=== PATIENT | male | born 1975 | race Caucasian/White ===

== ENCOUNTER 2020-03-05 18:10 | Inpatient (IN) ==
[2020-03-05 19:38] LABS: Blood, Urine Negative (Negative); Glucose,Urine (UA) Negative (Negative); Ketones,Urine Negative (Negative); Mucus,Urine Occasional /LPF (Occasional); Nitrite,Urine Negative (Negative); Protein,Urine Negative; RBC,Urine 1 /HPF (0-4); Urine Appearance CLEAR (Clear); Urine Color Amber (Yellow); Urine Specific Gravity 1.019 (1.001-1.035); WBC,Urine 2 /HPF (0-6)
[2020-03-05 19:38] LABS: Basophils # 0.1 10*3/uL (0.0-0.2); Basophils % 0.7 % (0.0-0.8); Eosinophils # 0.1 10*3/uL (0.0-0.87); Eosinophils % 0.5 % (0.00-10.9); Hematocrit 39.2 VOL% (42.0-52.0); Hemoglobin 13.8 GM/DL (14.0-18.0); Immature Granulocytes Absolute 0.13 #; Lymphocytes % 16.3 % (21.2-54.2); Mean Corpuscular HGB Conc 35.2 GM/DL (32-36); Mean Platelet Volume 10.1 FL (9.6-12.0); Monocytes % 6.1 % (1.7-12.7); Neutrophils % 75.4 % (38.7-73.9); Platelet Count 79 T/CUMM (130-400); Red Cell Distribution Width 15.2 % (9.3-17.3); White Blood Count 12.6 T/CUMM (4-12)
[2020-03-05 19:40] LABS: Bilirubin,Urine Moderate mg/dL (Negative)
[2020-03-05] MEDS ORDERED: MORPHINE 4 MG/1 ML VIAL IV STA ×2 (19:42→22:14)
[2020-03-05] MEDS ORDERED: LACTATED RINGERS 1,000 ML IV ONE (19:42)
[2020-03-05] MEDS ORDERED: ONDANSETRON 4 MG/2 ML VIAL IV STA (19:42)
[2020-03-05 20:01] LABS: Bilirubin,Total 8.4 MG/DL (0.2-1.0); Calcium 8.2 MG/DL (8.5-10.1); Osmolality,Calculated 266.1 MOS/KG (273-304); Total Protein 8.7 G/DL (6.4-8.3)
[2020-03-05 20:14] LABS: Platelet Estimate Decreased
[2020-03-05] MEDS ORDERED: metroNIDAZOLE INJ 500 MG in PREMIX 1 EACH IV STA (22:44)
[2020-03-05] MEDS ORDERED: PIPERACILLIN/TAZOBACTAM 3,375 MG in SODIUM CHLORIDE 0.9% 100 ML IV STA ×2 (22:44→22:51)
[2020-03-05] MEDS ORDERED: PIPERACILLIN/TAZOBACTAM 3,375 MG VIAL IV ONE (22:58)
[2020-03-05] MEDS ORDERED: SODIUM CHLORIDE 0.9% 100 ML IV ONE (22:59)
[2020-03-05] MEDS ORDERED: DEXTROSE 50% 25 GM/50 ML VIAL IV PRN (23:08)
[2020-03-05] MEDS ORDERED: guaiFENesin/DM ER 600-30 MG TABLET PO PRN (23:08)
[2020-03-05] MEDS ORDERED: PROMETHAZINE 25 MG TABLET PO PRN (23:08)
[2020-03-05] MEDS ORDERED: ACETAMINOPHEN 325 MG TABLET PO PRN (23:08)
[2020-03-05] MEDS ORDERED: ZALEPLON 5 MG CAPSULE PO PRN (23:08)
[2020-03-05] MEDS ORDERED: diphenhydrAMINE CAP 25 MG CAPSULE PO PRN (23:08)
[2020-03-05] MEDS ORDERED: GLUCAGON 1 MG VIAL IM PRN (23:08)
[2020-03-05] MEDS ORDERED: NICOTINE 21 MG/24 HR PATCH TRANSDERM PRN (23:08)
[2020-03-05] MEDS ORDERED: PROMETHAZINE 25 MG/1 ML VIAL IM PRN (23:08)
[2020-03-05] MEDS ORDERED: hydrALAZINE 20 MG/1 ML VIAL IV PRN (23:08)
[2020-03-06] MEDS: ONDANSETRON 4 MG/2 ML VIAL IV PRN ×2 (00:56→21:43)
[2020-03-06] MEDS: SODIUM CHLORIDE 0.9% 1,000 ML IV SCH ×3 (01:16→21:32)
[2020-03-06] MEDS: VANCOMYCIN INJ 1,500 MG in SODIUM CHLORIDE 0.9% 500 ML IV SCH ×2 (01:59→13:51)
[2020-03-06] MEDS: MORPHINE 4 MG/1 ML VIAL IV PRN ×4 (03:12→18:01)
[2020-03-06 06:22] LABS: Basophils # 0.1 10*3/uL (0.0-0.2); Basophils % 0.6 % (0.0-0.8); Eosinophils % 0.2 % (0.00-10.9); Hematocrit 33.4 VOL% (42.0-52.0); Hemoglobin 11.7 GM/DL (14.0-18.0); Immature Granulocytes % 1.1 %; Immature Granulocytes Absolute 0.12 #; Lymphocytes # 1.7 10*3/uL (1.4-4.0); Lymphocytes % 15.4 % (21.2-54.2); Mean Corpuscular Volume 98.5 FL (87-102); Mean Platelet Volume 10.4 FL (9.6-12.0); Monocytes % 6.6 % (1.7-12.7); Neutrophils % 76.1 % (38.7-73.9); Platelet Count 60 T/CUMM (130-400); Red Blood Count 3.39 MC/CUMM (3.8-5.5); Red Cell Distribution Width 15.2 % (9.3-17.3); White Blood Count 10.7 T/CUMM (4-12)
[2020-03-06] MEDS: PIPERACILLIN/TAZOBACTAM 3,375 MG in SODIUM CHLORIDE 0.9% 100 ML IV SCH ×3 (06:24→22:47)
[2020-03-06 06:41] LABS: Band Neutrophils 2 % (0-10); Lymphocytes 11 % (20-55); Platelet Estimate Decreased; Segmented Neutrophils 84 % (50-85); Total Cells Counted 100
[2020-03-06 06:42] LABS: Hypochromasia 1+; Microcytosis 1+
[2020-03-06 06:44] LABS: Calcium 7.9 MG/DL (8.5-10.1); Osmolality,Calculated 264.2 MOS/KG (273-304)
[2020-03-06 06:46] LABS: Albumin 1.8 G/DL (3.4-5.0); Bilirubin,Direct 6.24 MG/DL (0.0-0.20); Bilirubin,Indirect 2.6 MG/DL (0.0-1.0); Bilirubin,Total 8.8 MG/DL (0.2-1.0); Total Protein 7.8 G/DL (6.4-8.3)
[2020-03-06] MEDS ORDERED: VANCOMYCIN INJ 1,500 MG in SODIUM CHLORIDE 0.9% 500 ML IV SCH (07:00)
[2020-03-06] MEDS ORDERED: PANTOPRAZOLE 40 MG TABLET PO SCH (09:00)
[2020-03-06] MEDS ORDERED: ONDANSETRON 4 MG/2 ML VIAL ONE (09:00)
[2020-03-06] MEDS ORDERED: LIDOCAINE 2% 5 ML VIAL ONE (09:00)
[2020-03-06] MEDS ORDERED: propofoL 200 MG/20 ML VIAL IV ONE (09:00)
[2020-03-06] MEDS ORDERED: ENOXAPARIN 40 MG/0.4 ML SYRINGE SUBCUT SCH (09:00)
[2020-03-06 14:37] LABS: INR 1.2; PT Patient Result 13.1 SECS (9.8-11.9)
[2020-03-06 16:10] LABS: Neutrophils,Peritoneal Fluid 76 %
[2020-03-06 16:11] LABS: RBC,Peritoneal Fluid 808 T/CUMM
[2020-03-06] MEDS ORDERED: LORazepam 2 MG/1 ML VIAL IV PRN (17:48)
[2020-03-06] MEDS ORDERED: chlordiazePOXIDE 25 MG CAPSULE PO ONE (17:49)
[2020-03-06] MEDS: chlordiazePOXIDE 25 MG CAPSULE PO SCH (21:32)
[2020-03-06] MEDS: THIAMINE 200 MG/2 ML VIAL IV SCH (21:34)
[2020-03-07] MEDS: SODIUM CHLORIDE 0.9% 1,000 ML IV SCH ×2 (00:30→14:29)
[2020-03-07] MEDS: MORPHINE 4 MG/1 ML VIAL IV PRN ×3 (00:51→14:28)
[2020-03-07] MEDS: VANCOMYCIN INJ 1,500 MG in SODIUM CHLORIDE 0.9% 500 ML IV SCH (02:16)
[2020-03-07 05:31] LABS: Basophils # 0.1 10*3/uL (0.0-0.2); Basophils % 0.9 % (0.0-0.8); Eosinophils % 0.3 % (0.00-10.9); Hematocrit 28.7 VOL% (42.0-52.0); Hemoglobin 10.2 GM/DL (14.0-18.0); Immature Granulocytes % 0.7 %; Immature Granulocytes Absolute 0.05 #; Lymphocytes # 1.4 10*3/uL (1.4-4.0); Mean Corpuscular HGB Conc 35.5 GM/DL (32-36); Mean Corpuscular Volume 97.6 FL (87-102); Mean Platelet Volume 10.1 FL (9.6-12.0); Monocytes % 7.6 % (1.7-12.7); Neutrophils % 70.5 % (38.7-73.9); Red Blood Count 2.94 MC/CUMM (3.8-5.5); Red Cell Distribution Width 14.9 % (9.3-17.3); White Blood Count 6.8 T/CUMM (4-12)
[2020-03-07 05:41] LABS: Calcium 7.6 MG/DL (8.5-10.1); Osmolality,Calculated 261.4 MOS/KG (273-304)
[2020-03-07 06:04] LABS: Platelet Count 47 T/CUMM (130-400)
[2020-03-07 06:08] LABS: Hypochromasia 1+
[2020-03-07 06:09] LABS: Anisocytosis 1+; Microcytosis 1+; Platelet Estimate Decreased; Target Cells Few
[2020-03-07] MEDS: PIPERACILLIN/TAZOBACTAM 3,375 MG in SODIUM CHLORIDE 0.9% 100 ML IV SCH ×3 (06:27→22:25)
[2020-03-07] MEDS: chlordiazePOXIDE 25 MG CAPSULE PO SCH ×3 (08:44→22:25)
[2020-03-07] MEDS: THIAMINE 200 MG/2 ML VIAL IV SCH (08:44)
[2020-03-07] MEDS: MULTIVITAMIN (CENTRUM) TABLET PO SCH (08:44)
[2020-03-07] MEDS: FOLIC ACID 1 MG TABLET PO SCH (08:44)
[2020-03-07] MEDS: ONDANSETRON 4 MG/2 ML VIAL IV PRN ×2 (08:45→14:28)
[2020-03-07] MEDS ORDERED: chlorproMAZINE 25 MG TABLET PO ONE (16:00)
[2020-03-07] MEDS: chlorproMAZINE 25 MG TABLET PO SCH (22:25)
[2020-03-08] MEDS: SODIUM CHLORIDE 0.9% 1,000 ML IV SCH (01:30)
[2020-03-08 03:56] LABS: Basophils # 0.1 10*3/uL (0.0-0.2); Basophils % 0.8 % (0.0-0.8); Eosinophils # 0.1 10*3/uL (0.0-0.87); Eosinophils % 0.8 % (0.00-10.9); Hematocrit 27.1 VOL% (42.0-52.0); Hemoglobin 9.5 GM/DL (14.0-18.0); Immature Granulocytes % 1.4 %; Immature Granulocytes Absolute 0.09 #; Lymphocytes # 1.5 10*3/uL (1.4-4.0); Lymphocytes % 23.2 % (21.2-54.2); Mean Corpuscular HGB Conc 35.1 GM/DL (32-36); Mean Corpuscular Volume 97.8 FL (87-102); Monocytes % 8.3 % (1.7-12.7); NRBC # 0.03 10*3/uL; Neutrophils % 65.5 % (38.7-73.9); Platelet Count 46 T/CUMM (130-400); Red Blood Count 2.77 MC/CUMM (3.8-5.5); Red Cell Distribution Width 14.9 % (9.3-17.3); White Blood Count 6.4 T/CUMM (4-12)
[2020-03-08 04:21] LABS: Calcium 7.9 MG/DL (8.5-10.1); Osmolality,Calculated 262.5 MOS/KG (273-304)
[2020-03-08 04:29] LABS: Eosinophils 2 % (0-10); Hypochromasia Slight; Lymphocytes 14 % (20-55); Platelet Estimate Decreased; Segmented Neutrophils 82 % (50-85); Total Cells Counted 100
[2020-03-08] MEDS: PIPERACILLIN/TAZOBACTAM 3,375 MG in SODIUM CHLORIDE 0.9% 100 ML IV SCH (06:29)
[2020-03-08] MEDS ORDERED: POTASSIUM CHLORIDE 20 MEQ/15 ML UDCUP PO ONE (09:00)
[2020-03-08] MEDS: FOLIC ACID 1 MG TABLET PO SCH (09:22)
[2020-03-08] MEDS: MULTIVITAMIN (CENTRUM) TABLET PO SCH (09:22)
[2020-03-08] MEDS: chlorproMAZINE 25 MG TABLET PO SCH (09:22)
[2020-03-08] MEDS: THIAMINE 200 MG/2 ML VIAL IV SCH (09:22)
[2020-03-08] MEDS: chlordiazePOXIDE 25 MG CAPSULE PO SCH (09:22)
[2020-03-08] MEDS: ONDANSETRON 4 MG/2 ML VIAL IV PRN (09:23)
[2020-03-08] MEDS: MORPHINE 4 MG/1 ML VIAL IV PRN (09:23)
[2020-03-08 12:23] VITALS: BP 122/62
== END 2020-03-08 12:44 | disposition home or self-care (01) | DRG 433 ==
LOC: N.ED 18:10 → N.EDINP 23:08 → N.5E 03-06 00:18
PROVIDERS: ADMIT Emergency Medicine; ATTEND Emergency Medicine